=== PATIENT | female | born 1990 | race Caucasian/White ===

== ENCOUNTER 2018-03-22 13:09 | Emergency (ER) | payer SELFPAY ==
[2018-03-22 13:32] VITALS: BMI 23.0
[2018-03-22 13:36] VITALS: TEMP 98.7
--- NOTE | 2018-03-22 15:13 | US ---
Date of service: 03/22/2018 HISTORY: r/o ectopic COMPARISON: Ob transvaginal ultrasound performed 03/20/18 TECHNIQUE: Transvaginal pelvic ultrasound FINDINGS: UTERUS: Measures 9.1 x 4.1 x 4.9 cm. Anteverted. ENDOMETRIUM: Measures 6 mm in diameter. CERVIX: Cervix length measures approximately 2.5 cm. RIGHT OVARY: Measures 4.0 x 2.3 x 3.1 cm. Blood flow is demonstrated. 1.9 x 1.5 x 1.5 cm probable corpus luteal cyst. Complex right adnexal mass adjacent to the right ovary measuring approximately 1.7 x 1.2 cm. LEFT OVARY: Measures 3.0 x 1.7 x 2.6 cm. Blood flow is demonstrated. FREE FLUID: No significant free fluid noted. OTHER FINDINGS: None. IMPRESSION: No evidence of intrauterine gestational sac. If indeed the patient is based on serum beta HCG values, the sonographic findings represent either: Very early IUP; embryonic demise; ectopic gestation. Complex right adnexal mass adjacent to the right ovary measuring approximately 1.7 x 1.2 cm further raises concern for ectopic gestation. Correlation with serial quantitative serum beta HCG measurements, serial pelvic ultrasounds, and OBGYN follow-up as clinically indicated.
--- NOTE | 2018-03-22 15:34 | C.PDOC ---
History Of Present Illness 27 year old female presents to the ED for evaluation of left-sided abdominal cramping and vaginal spotting which began around four days ago. Patient states she was evaluated at [facility] four days ago and was informed she is having an ectopic and possible miscarriage. She was advised to follow up with referred doctors in two days for a beta count. Patient was unable to secure appointments with the doctors, and presents to the ED for further evaluation. She denies fever, chills, back pain, urinary symptoms. Time Seen by Provider: 03/22/18 13:14 Chief Complaint (Nursing): Female Genitourinary History Per: Patient History/Exam Limitations: no limitations Onset/Duration Of Symptoms: Days Current Symptoms Are (Timing): Still Present Quality Of Discomfort: Cramping, "Pain" Associated Symptoms: denies: Fever, Chills, Back Pain, Urinary Symptoms Additional History Per: Patient Abnormal Vaginal Bleeding: Yes Past Medical History Reviewed: Historical Data, Nursing Documentation, Vital Signs Vital Signs: Last Vital Signs Temp 98.7 F 03/22/18 13:32 Pulse 119 H 03/22/18 13:32 Resp 18 03/22/18 13:32 BP 125/73 03/22/18 13:32 Pulse Ox 100 03/22/18 13:32 - Medical History PMH: No Chronic Diseases Surgical History: No Surg Hx Family History: States: Unknown Family Hx - Social History Hx Tobacco Use: Yes Hx Alcohol Use: Yes Hx Substance Use: Yes - Immunization History Hx Tetanus Toxoid Vaccination: No Hx Influenza Vaccination: No Hx Pneumococcal Vaccination: No Review Of Systems Constitutional: Negative for: Fever, Chills, Weakness Cardiovascular: Negative for: Chest Pain Respiratory: Negative for: Cough, Shortness of Breath Gastrointestinal: Positive for: Abdominal Pain (left-sided, cramping ). Negative for: Nausea, Vomiting Genitourinary: Positive for: Other (vaginal spotting ). Negative for: Dysuria, Frequency, Hematuria Musculoskeletal: Negative for: Back Pain Skin: Negative for: Rash Neurological: Negative for: Weakness, Numbness, Dizziness Physical Exam - Physical Exam Appears: Well, Non-toxic, No Acute Distress Skin: Normal Color, Warm, No Rash Head: Atraumatic, Normacephalic Eye(s): bilateral: Normal Inspection Oral Mucosa: Moist Neck: Normal ROM, Supple Chest: Symmetrical Respiratory: No Accessory Muscle Use, Other (normal inspiratory effort ) Gastrointestinal/Abdominal: Soft, No Tenderness, No Distention, No Guarding, No Rebound Back: Other (ambulating with steady upright gait) Extremity: Normal ROM Extremity: Bilateral: Atraumatic Pulses: Left Radial: Normal, Right Radial: Normal Neurological/Psych: Oriented x3, Normal Cranial Nerves (grossly intact ) ED Course And Treatment - Laboratory Results Lab Results: Beta HCG, Quant 93.87 mIU/ML 03/22/18 14:28 O2 Sat by Pulse Oximetry: 100 (on RA ) Pulse Ox Interpretation: Normal - CT Scan/US ultrasound Other Rad Studies (CT/US): Read By Radiologist, Radiology Report Reviewed CT/US Interpretation: Date of service: 03/22/2018. HISTORY: r/o ectopic. COMPARISON: Ob transvaginal ultrasound performed 03/20/18. TECHNIQUE: Transvaginal pelvic ultrasound. FINDINGS: UTERUS: Measures 9.1 x 4.1 x 4.9 cm. Anteverted. ENDOMETRIUM: Measures 6 mm in diameter. CERVIX: Cervix length measures approximately 2.5 cm. RIGHT OVARY: Measures 4.0 x 2.3 x 3.1 cm. Blood flow is demonstrated. 1.9 x 1.5 x 1.5 cm probable corpus luteal cyst. Complex right adnexal mass adjacent to the right ovary measuring approximately 1.7 x 1.2 cm. LEFT OVARY: Measures 3.0 x 1.7 x 2.6 cm. Blood flow is demonstrated. FREE FLUID: No significant free fluid noted. OTHER FINDINGS: None. IMPRESSION: No evidence of intrauterine gestational sac. If indeed the patient is based on serum beta HCG values, the sonographic findings represent either: Very early IUP; embryonic demise; ectopic gestation. Complex right adnexal mass adjacent to the right ovary measuring approximately 1.7 x 1.2 cm further raises concern for ectopic gestation. Correlation with serial quantitative serum beta HCG measurements, serial pelvic ultrasounds, and OBGYN follow-up as clinically indicated. Medical Decision Making Medical Decision Making: Progress: Ultrasound and beta count ordered and reviewed. Patient has beta count of 93.87 mIU/ML which is lower than when measured several days. patient appears to be having a spontanous . Disposition Counseled Patient/Family Regarding: Studies Performed, Diagnosis, Need For Followup - Disposition Disposition: HOME/ ROUTINE Disposition Time: 15:49 Condition: STABLE Additional Instructions: Please follow up CONVENTIONS ASSISTANT, return to ER if bleeding or pain worsens. 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 - Scribe Statement The provider has reviewed the documentation as recorded by the Scribe (Chasity Hahn) All medical record entries made by the Scribe were at my direction and personally dictated by me. I have reviewed the chart and agree that the record accurately reflects my personal performance of the history, physical exam, medical decision making, and the department course for this patient. I have also personally directed, reviewed, and agree with the discharge instructions and disposition.
[2018-03-22 16:12] VITALS: BP 97/61; PULSE 75; RESP 16
[2018-03-25 04:11] VITALS: O2SAT 100
== END 2018-03-22 16:12 | disposition home or self-care (01) ==
LOC: C.ER 13:09
DX: O03.9 Complete or unspecified spontaneous abortion without complication (principal)